=== PATIENT | female | born 1960 | race African-American/Black ===

== ENCOUNTER 2017-03-05 12:59 | Emergency (ER) | payer OTHER ==
[2017-03-05] MEDS ORDERED: ONDANSETRON HCL 8 MG TABLET PO ONE (13:25)
[2017-03-05] MEDS ORDERED: IBUPROFEN 600 MG TABLET PO ONE (14:04)
[2017-03-05] MEDS ORDERED: HYDROCODONE/ACETAMINOPHEN 5-325 MG TABLET PO ONE (14:04)
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
[2017-03-05 15:17] VITALS: BP 154/77
== END 2017-03-05 15:16 | disposition home or self-care (01) ==
LOC: ER 12:59
DX: S39.012A Strain of muscle, fascia and tendon of lower back, initial encounter (principal); S20.219A Contusion of unspecified front wall of thorax, initial encounter; M54.9 Dorsalgia, unspecified; V87.7XXA Person injured in collision between other specified motor vehicles (traffic), initial encounter
CPT/HCPCS: 99283; 71020; S0119

== ENCOUNTER 2019-08-28 19:13 | Emergency (ER) | payer BC, OTHER ==
--- NOTE | 2019-08-28 19:35 | ER Document Report ---
ED Medical Screen (RME) - General Chief Complaint: Headache Stated Complaint: HEADACHE Time Seen by Provider: 08/28/19 19:31 Primary Care Provider: MATEUS LU MD [Primary Care Provider] - Follow up as needed Mode of Arrival: Ambulatory Information source: Patient Notes: 59-year-old female presented to ED for elevated blood pressure cough cold congestion. She states the cough is so bad that is got the left side of her ribs hurting. She states she went to [facility] on 10 August and they gave her some steroids and blood pressure medicine because her blood pressure was high. She states she took the steroids but she still coughing and now the left ribs hurt. She states it hurts with every breath she takes. I have greeted and performed a rapid initial assessment of this patient. A comprehensive ED assessment and evaluation of the patient, analysis of test results and completion of medical decision making process will be conducted by an additional ED providers. TRAVEL OUTSIDE OF THE [place] IN LAST 30 DAYS: No - Related Data Allergies/Adverse Reactions: No Known Allergies Allergy (Verified 08/31/14 07:22) Past Medical History - Past Medical History Cardiac Medical History: Reports: Hx Hypertension Past Surgical History: Reports: Hx Gynecologic Surgery - L oophorectomy - Immunizations Hx Diphtheria, Pertussis, Tetanus Vaccination: Yes Doctor's Discharge - Discharge Referrals: MATEUS LU MD [Primary Care Provider] - Follow up as needed
--- NOTE | 2019-08-28 20:06 | RADIOLOGY REPORT (SQ) ---
EXAM DESCRIPTION: CHEST 2 VIEWS COMPLETED DATE/TIME: 08/28/2019 7:54 pm REASON FOR STUDY: Cough congestion left rib pain COMPARISON: Two-view chest 03/05/2017 EXAM PARAMETERS: NUMBER OF VIEWS: two views TECHNIQUE: Digital Frontal and Lateral radiographic views of the chest acquired. RADIATION DOSE: NA LIMITATIONS: none FINDINGS: LUNGS AND PLEURA: No opacities, masses or pneumothorax. No pleural effusion. MEDIASTINUM AND HILAR STRUCTURES: No masses or contour abnormalities. HEART AND VASCULAR STRUCTURES: Heart normal size. No evidence for failure. BONES: No acute findings. HARDWARE: None in the chest. OTHER: No other significant finding. IMPRESSION: NO ACUTE RADIOGRAPHIC FINDING IN THE CHEST. TECHNICAL DOCUMENTATION: JOB ID: [id number] [employer]- All Rights Reserved Reading location - IP/workstation name: [email or web address]
[2019-08-28 20:07] LABS: ABSOLUTE BASOPHILS # (AUTO) 0.1 10^3/uL (0.0-0.2); ABSOLUTE EOSINOPHILS # (AUTO) 0.1 10^3/uL (0.0-0.6); ABSOLUTE LYMPHOCYTES (AUTO) 1.7 10^3/uL (0.5-4.7); ABSOLUTE MONOCYTES (AUTO) 0.8 10^3/uL (0.1-1.4); ABSOLUTE NEUT (AUTO) 7.1 10^3/uL (1.7-8.2); BASOPHILS % (AUTO) 0.6 % (0-2); EOSINOPHILS % (AUTO) 0.8 % (0-6); HEMATOCRIT 40.7 % (36.0-47.0); HEMOGLOBIN 13.9 g/dL (12.0-15.5); LYMPHOCYTES % (AUTO) 17.3 % (13-45); MEAN CORPUSCULAR HEMOGLOBIN 30.2 pg (27.0-33.4); MEAN CORPUSCULAR HGB CONC 34.2 g/dL (32.0-36.0); MEAN CORPUSCULAR VOLUME 88 fl (80-97); MONOCYTES % (AUTO) 7.8 % (3-13); PLATELET COUNT 282 10^3/uL (150-450); RED BLOOD COUNT 4.61 10^6/uL (3.72-5.28); RED CELL DISTRIBUTION WIDTH 13.3 % (11.5-14.0); SEGMENTED NEUTROPHILS % (AUTO) 73.5 % (42-78); TOTAL CELLS COUNTED % (AUTO) 100 %; WHITE BLOOD COUNT 9.7 10^3/uL (4.0-10.5)
[2019-08-28 20:14] LABS: APPEARANCE,URINE CLEAR; BILIRUBIN,URINE NEGATIVE (NEGATIVE); COLOR,URINE STRAW; GLUCOSE, URINE NEGATIVE (NEGATIVE); KETONES,URINE NEGATIVE (NEGATIVE); PROTEIN,URINE NEGATIVE (NEGATIVE); URINE SPECIFIC GRAVITY 1.005; UROBILINOGEN,URINE NEGATIVE mg/dL (<2.0)
[2019-08-28 20:26] LABS: ALBUMIN 4.2 g/dL (3.5-5.0); ALKALINE PHOSPHATASE 68 U/L (38-126); ANION GAP 7 (5-19); ASPARTATE AMINO TRANSFERASE 34 U/L (14-36); BILIRUBIN,DIRECT 0.2 mg/dL (0.0-0.4); BILIRUBIN,TOTAL 0.7 mg/dL (0.2-1.3); BLOOD UREA NITROGEN 6 mg/dL (7-20); CALCIUM 9.5 mg/dL (8.4-10.2); CARBON DIOXIDE 28 mmol/L (22-30); CHLORIDE 103 mmol/L (98-107); GLUCOSE 103 mg/dL (75-110); TOTAL PROTEIN 7.8 g/dL (6.3-8.2)
[2019-08-28] MEDS ORDERED: DEXAMETHASONE SOD PHOS INJ 10 MG/1 ML VIAL IM ONE (20:55)
[2019-08-28] MEDS ORDERED: BENZONATATE 100 MG CAPSULE PO ONE (20:55)
--- NOTE | 2019-08-28 20:56 | ER Document Report ---
ED Respiratory Problem - General Chief Complaint: Congestion Stated Complaint: HEADACHE Time Seen by Provider: 08/28/19 19:31 Primary Care Provider: MATEUS LU MD [Primary Care Provider] - Follow up as needed Mode of Arrival: Ambulatory Notes: 59-year-old female with hypertension presents the emergency department with chief concern of blood pressure cough, cold, congestion. She has had a persistent cough for the past 2 weeks that is caused her to have left-sided rib pain every time she coughs. She went to [facility] on 10 August and was prescribed steroids but did not take them properly and was noncompliant. Patient denies any fevers or chills, denies any sore throat, denies ear pain, does complain of headache, denies any chest pain, denies abdominal pain, denies nausea/vomiting/diarrhea. No other complaints TRAVEL OUTSIDE OF THE [place] IN LAST 30 DAYS: No - Related Data Allergies/Adverse Reactions: No Known Allergies Allergy (Verified 08/31/14 07:22) Home Medications: Benazepril 10mg BID. Omeprazole 20mg QD. Levothyroxin 100mcg QD Past Medical History - General Information source: Patient - Social History Smoking Status: Former Smoker Frequency of alcohol use: None Drug Abuse: None Family History: Reviewed & Not Pertinent Patient has suicidal ideation: No Patient has homicidal ideation: No - Past Medical History Cardiac Medical History: Reports: Hx Hypertension Past Surgical History: Reports: Hx Gynecologic Surgery - L oophorectomy - Immunizations Hx Diphtheria, Pertussis, Tetanus Vaccination: Yes Review of Systems - Review of Systems Constitutional: See HPI EENT: See HPI Cardiovascular: See HPI Respiratory: See HPI Gastrointestinal: See HPI Genitourinary: No symptoms reported Female Genitourinary: No symptoms reported Musculoskeletal: No symptoms reported Skin: No symptoms reported Hematologic/Lymphatic: No symptoms reported Neurological/Psychological: No symptoms reported Physical Exam - Vital signs Vitals: Temp Pulse Resp BP Pulse Ox 99.1 F 102 H 22 H 136/97 H 92 08/28/19 19:26 08/28/19 19:26 08/28/19 19:26 08/28/19 19:26 08/28/19 19:26 - Notes Notes: PHYSICAL EXAMINATION: Reviewed vital signs and charting by RN GENERAL: Alert, interacts well. No acute distress. HEAD: Normocephalic, atraumatic. EYES: Pupils equal and round. Extraocular movements intact. ENT: Oral mucosa moist, tongue midline. NECK: Full range of motion. Trachea midline. LUNGS: Clear to auscultation bilaterally, no wheezes, rales, or rhonchi. No respiratory distress. HEART: Regular rate and rhythm. No murmur ABDOMEN: soft, non-tender. No distention. Bowel sounds present EXTREMITIES: Moves all 4 extremities spontaneously. No edema, No cyanosis. PSYCH: Normal affect, normal mood. SKIN: Warm, dry, normal turgor. No rashes or lesions noted. Course - Re-evaluation Re-evalutation: 08/28/19 20:53 Patient presents with a clinical history and exam most consistent with an acute viral bronchitis. Patient is overall well in appearance without tachypnea, hypoxemia, tachycardia, or difficulty with ambulation. Breath sounds are clear bilaterally. No fever. Patient does have additional signs of upper respiratory infection including nasal congestion, sore throat, and sinus pressure. No indication for labs or imaging. Will treat with bronchodilators, single dose of dexamethasone, and Tessalon Perles. At this time will discharge with return precautions and follow-up recommendations. Verbal discharge instructions given a the bedside and opportunity for questions given. Medication warnings reviewed. Patient is in agreement with this plan and has verbalized understanding of return precautions and the need for primary care follow-up in the next 24-72 hours. - Vital Signs Vital signs: Temp Pulse Resp BP Pulse Ox 99.1 F 102 H 22 H 136/97 H 92 08/28/19 19:26 08/28/19 19:26 08/28/19 19:26 08/28/19 19:26 08/28/19 19:26 - Laboratory Result Diagrams: 08/28/19 19:42 08/28/19 19:42 Laboratory results interpreted by me: 08/28/19 19:42 BUN 6 L Discharge - Discharge Clinical Impression: Acute bronchitis Qualifiers: Bronchitis organism: unspecified organism Qualified Code(s): J20.9 - Acute bronchitis, unspecified Headache Qualifiers: Headache type: unspecified Headache chronicity pattern: acute headache Condition: Good Disposition: HOME, SELF-CARE Additional Instructions: You were seen for symptoms most consistent with bronchitis. This can take up to 12 weeks to fully resolve. This is generally due to a viral infection. Please follow-up with your primary doctor in the next 2-3 days. Return if you develop worsening cough, vomiting, fever >102, pass out, begin coughing blood, or have any other symptoms that are concerning to you. Please use the medications prescribed today as directed. Forms: Return to Work Referrals: MATEUS LU MD [Primary Care Provider] - Follow up as needed
[2019-08-28] MEDS ORDERED: IBUPROFEN 600 MG TABLET PO ONE (21:00)
[2019-08-28 21:30] VITALS: BP 128/73
== END 2019-08-28 21:39 | disposition home or self-care (01) ==
LOC: ER 19:13
DX: J20.9 Acute bronchitis, unspecified (principal); R51 Headache; R09.81 Nasal congestion; J02.9 Acute pharyngitis, unspecified; I10 Essential (primary) hypertension; R05 Cough; R07.81 Pleurodynia; Z79.899 Other long term (current) drug therapy; Z87.891 Personal history of nicotine dependence
CPT/HCPCS: 99284; 96374; 36415; 85025; 80053; 81001; 71046; J1100

== ENCOUNTER 2019-08-30 20:03 | Emergency (ER) | payer BC ==
--- NOTE | 2019-08-30 21:45 | ER Document Report ---
ED Medical Screen (RME) - General Chief Complaint: Flu Symptoms Stated Complaint: FLU-LIKE SYMPTOMS Time Seen by Provider: 08/30/19 21:38 Primary Care Provider: MATEUS LU MD [Primary Care Provider] - Follow up as needed Notes: 59-year-old female presents to the emergency department with chief complaint of persistent cough for the past 3 weeks. Patient seen here on 08/28 by me and diagnosed with acute bronchitis and given a shot of Decadron. Patient states that her symptoms improved for a couple of days and she got acutely worse. Known contact with positive influenza who she has been sleeping in the same bed with for 3 nights. Difficult historian but patient denies headache, sore throat, states that she vomits from coughing, denies abdominal pain. Exam: In mild distress, lungs are clear to auscultation, regular cardiac rate and rhythm I have greeted and performed a rapid initial assessment of this patient. A comprehensive ED assessment and evaluation of the patient, analysis of test results and completion of medical decision making process will be conducted by an additional ED providers. TRAVEL OUTSIDE OF THE [place] IN LAST 30 DAYS: No - Related Data Allergies/Adverse Reactions: No Known Allergies Allergy (Verified 08/31/14 07:22) Home Medications: synthroid, omeprazole, benazapril Past Medical History - Social History Chew tobacco use (# tins/day): No Frequency of alcohol use: None Drug Abuse: None - Past Medical History Cardiac Medical History: Reports: Hx Hypertension Past Surgical History: Reports: Hx Gynecologic Surgery - L oophorectomy - Immunizations Hx Diphtheria, Pertussis, Tetanus Vaccination: Yes Physical Exam - Vital signs Vitals: Temp Pulse Resp BP Pulse Ox 97.5 F 103 H 18 152/89 H 99 08/30/19 20:19 08/30/19 20:19 08/30/19 20:19 08/30/19 20:19 08/30/19 20:19 Course - Vital Signs Vital signs: Temp Pulse Resp BP Pulse Ox 97.5 F 103 H 18 152/89 H 99 08/30/19 21:29 08/30/19 21:29 08/30/19 21:29 08/30/19 21:29 08/30/19 21:29 Doctor's Discharge - Discharge Referrals: MATEUS LU MD [Primary Care Provider] - Follow up as needed
[2019-08-30] MEDS ORDERED: ACETAMINOPHEN 325 MG TABLET PO ONE (21:46)
[2019-08-30] MEDS ORDERED: IBUPROFEN 600 MG TABLET PO ONE (21:46)
[2019-08-30 22:16] LABS: A TYPE INFLUENZA AG NEGATIVE (NEGATIVE); B INFLUENZA AG NEGATIVE (NEGATIVE)
[2019-08-31] MEDS ORDERED: IPRATROPIUM/ALBUTEROL 0.5-2.5 MG/3 ML AMPUL NEB ONE (01:11)
[2019-08-31] MEDS ORDERED: NORMAL SALINE 1000 ML 1,000 ML IV ONE (01:11)
[2019-08-31] MEDS ORDERED: ONDANSETRON HCL INJ/PF 4 MG/2 ML SDV IV ONE (01:38)
--- NOTE | 2019-08-31 01:55 | ER Document Report ---
ED Flu Like - General Chief Complaint: Flu Symptoms Stated Complaint: FLU-LIKE SYMPTOMS Time Seen by Provider: 08/30/19 21:38 Primary Care Provider: MATEUS LU MD [NO LOCAL MD] - Follow up as needed Mode of Arrival: Ambulatory Information source: Patient Notes: 59-year-old female presents to the emergency department with chief complaint of persistent cough for the past 3 weeks. Patient seen here on 08/28 by me and diagnosed with acute bronchitis and given a shot of Decadron. Patient states that her symptoms improved for a couple of days and she got acutely worse. Known contact with positive influenza who she has been sleeping in the same bed with for 3 nights. Difficult historian but patient denies headache, sore throat, states that she vomits from coughing, denies abdominal pain. TRAVEL OUTSIDE OF THE [place] IN LAST 30 DAYS: No - Related Data Allergies/Adverse Reactions: No Known Allergies Allergy (Verified 08/31/14 07:22) Home Medications: synthroid, omeprazole, benazapril Past Medical History - General Information source: Patient - Social History Smoking Status: Never Smoker Chew tobacco use (# tins/day): No Frequency of alcohol use: None Drug Abuse: None Family History: Reviewed & Not Pertinent Patient has suicidal ideation: No Patient has homicidal ideation: No - Past Medical History Cardiac Medical History: Reports: Hx Hypertension Past Surgical History: Reports: Hx Gynecologic Surgery - L oophorectomy - Immunizations Hx Diphtheria, Pertussis, Tetanus Vaccination: Yes Review of Systems - Review of Systems Constitutional: Chills. denies: Fever EENT: Nose congestion, Throat pain Cardiovascular: No symptoms reported Respiratory: Cough, Sputum Gastrointestinal: Nausea Genitourinary: No symptoms reported Female Genitourinary: No symptoms reported Musculoskeletal: No symptoms reported Skin: No symptoms reported Hematologic/Lymphatic: No symptoms reported Neurological/Psychological: No symptoms reported Physical Exam - Vital signs Vitals: Temp Pulse Resp BP Pulse Ox 97.5 F 103 H 18 152/89 H 99 08/30/19 20:19 08/30/19 20:19 08/30/19 20:19 08/30/19 20:19 08/30/19 20:19 - Notes Notes: PHYSICAL EXAMINATION: GENERAL: Well-appearing, well-nourished. HEAD: Atraumatic, normocephalic. EYES: Pupils equal round and reactive to light, extraocular movements intact, conjunctiva are normal. ENT: Nares patent with clear rhinorrhea, oropharynx clear without exudates. Moist mucous membranes. NECK: Normal range of motion, supple without lymphadenopathy LUNGS: Mild expiratory wheezes noted, no increased work of breathing. HEART: Regular rate and rhythm without murmurs ABDOMEN: Soft, nontender, nondistended abdomen. No guarding, no rebound. No masses appreciated. Female : deferred Musculoskeletal: Normal range of motion, no pitting or edema. No cyanosis. NEUROLOGICAL: Cranial nerves grossly intact. Normal speech, normal gait. Normal sensory, motor exams PSYCH: Normal mood, normal affect. SKIN: Warm, Dry, normal turgor, no rashes or lesions noted. Course - Re-evaluation Re-evalutation: Influenza negative. Patient does report some improvement after being given Tylenol and ibuprofen. She is requesting a breathing treatment and IV fluids. Patient does appear mildly ill, this is her second visit in the last few days. Will order 1 L normal saline bolus and give her a DuoNeb. Plan for DC home after that. Nursing staff requesting Zofran for nausea. EKG was performed, shows a sinus rhythm, rate of 58, QTc 437, normal axis with no ST segment elevations or depressions. May proceed with 4 mg of Zofran IV. IV fluids infusing. Again plan to DC home after IV fluids given. Patient reports she is feeling much improved after administration of IV fluids and Zofran here in the emergency department. Will DC home. The patient's emergency department workup and current diagnosis were explained to the patient and or family. Follow-up instructions were provided. Medications if prescribed were discussed. Instructions for when to return to the emergency department including specific worrisome symptoms were discussed with the patient and/or family. - Vital Signs Vital signs: Temp Pulse Resp BP Pulse Ox 97.6 F 67 15 122/73 96 08/31/19 03:07 08/31/19 03:07 08/31/19 03:07 08/31/19 03:07 08/31/19 03:07 Discharge - Discharge Clinical Impression: Bronchitis Upper respiratory infection Qualifiers: URI type: unspecified URI Qualified Code(s): J06.9 - Acute upper respiratory infection, unspecified Condition: Stable Disposition: HOME, SELF-CARE Additional Instructions: Bronchitis with Bronchospasm (Wheezing) You have bronchitis with bronchospasm (wheezing). Sometimes people develop wheezing with a chest cold. This occurs either because of an underlying tendency toward asthma or because the virus itself irritates the bronchial tubes. This irritation causes cough, shortness of breath, and wheezing. Emergency treatment of bronchospasm may include adrenaline shots or bronchodilator aerosol. You may feel lightheaded and have a rapid pulse for an hour or two. Rest and get plenty of fluids. At home, we'll treat you with a bronchodilator inhaler. Corticosteroids may be required for some patients. Until you recover, avoid chemical fumes, dusts, pollens, and exercising in very cold or dry air. If you smoke, stop now! Most cases of bronchitis get better without antibiotics. We prescribe antibiotics when we believe bacteria are damaging your airways, or if there's high risk the bronchitis will worsen into pneumonia. Increase your fluid intake. A cool mist humidifier may make your lungs more comfortable. An expectorant (cough medicine that loosens phlegm) can help. Repeated episodes of bronchitis and bronchospasm may result in lung damage -- for example, chronic bronchitis, recurrent pneumonias, or emphysema. If you develop a fever, increased wheezing, chest pain, or severe shortness of breath, you should contact the doctor immediately. Prescriptions: Amoxicillin 1 tab PO TID #30 tab Prednisone [Deltasone 20 mg Tablet] 3 tab PO DAILY 5 Days #15 tablet Fluticasone Propionate [Flonase Nasal Bellflower 50 Mcg/Bellflower 16 gm] 2 sprays NASL Q12 #1 inhaler Forms: Return to Work Referrals: MATEUS LU MD [NO LOCAL MD] - Follow up as needed
[2019-08-31] MEDS ORDERED: ALBUTEROL SULFATE HFA (90 MCG/PUFF) 8 GM MDI (1 MDI/ER DISP) IH ONE (02:49)
[2019-08-31 03:09] VITALS: BP 122/73
--- NOTE | 2019-08-31 11:46 | EKG REPORT ---
SEVERITY:- NORMAL ECG - SINUS RHYTHM : Confirmed by: Gina Alvarez MD 31-Aug-2019 11:45:49
== END 2019-08-31 03:07 | disposition home or self-care (01) ==
LOC: ER 20:03
DX: J06.9 Acute upper respiratory infection, unspecified (principal); J40 Bronchitis, not specified as acute or chronic; R68.83 Chills (without fever); R11.0 Nausea; I10 Essential (primary) hypertension
CPT/HCPCS: 93005; 94640; 99283; 96361; 96374; 87804; 93010; J2405; J7030; J3490; J7620